=== PATIENT | male | born 1955 | race Caucasian/White ===

== ENCOUNTER 2020-05-10 13:52 | Emergency (ER) | payer OTHER, SELFPAY ==
[2020-05-10 13:53] VITALS: BP 172/98; PULSE 87; RESP 16; TEMP 37; O2SAT 96; BMI 35.6
[2020-05-10 13:59] VITALS: BP 172/98; PULSE 96; RESP 14; O2SAT 96
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
[2020-05-10 14:24] LABS: Basophils % 0.4 %; Eosinophils # 0.1 10^3/uL (0.0-0.8); Eosinophils % 1.3 %; Hematocrit 42.6 % (42.0-52.0); Lymphocytes # 0.9 10^3/uL (0.8-4.8); Lymphocytes % 11.6 %; Mean Corpuscular HGB Conc 32.9 g/dL (30.0-36.0); Mean Corpuscular Hemoglobin 29.5 pg (28.0-34.0); Mean Corpuscular Volume 89.9 fL (80-94); Mean Platelet Volume 10.7 fL (7.4-10.4); Monocytes # 0.5 10^3/uL (0.2-0.9); Neutrophils # 6.01 10^3/uL (1.8-7.7); Nucleated Red Blood Cells % 0 %; Platelet Count 164 10^3/cmm (130-400); Red Blood Count 4.74 10^6/uL (4.1-5.3); Red Cell Distribution Width 13.8 % (12.1-15.1); White Blood Count 7.6 10^3/uL (4.0-10.0)
[2020-05-10 14:29] VITALS: BP 176/73; PULSE 84; RESP 24; O2SAT 96
[2020-05-10] MEDS: iodixanol 320 mg/mL 100mL Btl IV (14:38)
[2020-05-10 14:42] LABS: Anion Gap 14.8 (5-19); Blood Urea Nitrogen 15 mg/dL (8-23); Calcium 8.9 mg/dL (8.5-10.5); Carbon Dioxide 22 mmol/L (22-29); Chloride 107 mmol/L (98-107); Glomerular Filtration Rate 67.6 mL/min (90-130); Glucose 100 mg/dL (65-115); Osmolality Calculated 291 mOsm/kg (285-295); Potassium 3.8 mmol/L (3.5-5.1); Sodium 140 mmol/L (136-145)
[2020-05-10 15:00] VITALS: BP 142/70; PULSE 75; RESP 20; O2SAT 95
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
[2020-05-10 16:48] VITALS: BP 149/76; PULSE 71; RESP 16; O2SAT 98
--- NOTE | 2020-05-11 08:32 | DCPLANNER ---
cyber security manager had message to schedule a follow up appointment for patient with ortho. cyber security manager called the ortho clinic, spoke with Kristen, gave clinic patients information. cyber security manager was told that patients information would be printed and reviewed. Clinic will call patient with appointment information.
--- NOTE | 2020-05-15 11:39 | DCPLANNER ---
molding manager called patient about referral, patient stated that he does not live here, that he has already contacted his primary care about a referral to ortho clinic where he lives.
== END 2020-05-10 16:38 | disposition home or self-care (01) ==
PROVIDERS: Emergency Provider Emergency Medicine
DX: S82.142A Displaced bicondylar fracture of left tibia, initial encounter for closed fracture (principal); V29.9XXA Motorcycle rider (driver) (passenger) injured in unspecified traffic accident, initial encounter
CPT/HCPCS: 12345; 29530; 71045; 71260; 73562; 73700; 74177; 80048; 85025; 99283; E0114; Q9967